=== PATIENT | male | born 1965 | race Caucasian/White ===

== ENCOUNTER 2023-04-13 00:27 | Day surgery (SDC) | payer OTHER, SELFPAY ==
[2023-04-12 10:37] VITALS: BMI 28.5
--- NOTE | 2023-04-12 10:44 | PC.NURSE ---
Report to the Outpatient Waiting Room, entrance under the green pavilion located off [facility], at time 1000 on date 04/13/23. Planned Procedure Time: 1200. Time changes happen often and if your time is changed the preop area will call you the afternoon before. - You and your visitor will be asked to self-screen and do not enter if you have any COVID symptoms. - A mask is optional within the hospital at this time. Patients may have clear liquids (water, carbonated beverages, clear teas, apple juice) until 3 hours prior to surgery with a maximum of 20 ounces. - No food from midnight until time of surgery Take the following medications with a SIP of water the morning of surgery: NONE DO NOT STOP ANY OF YOUR OTHER PRESCRIPTION MEDICATIONS PRIOR TO SURGERY ?EXCEPT THE FOLLOWING Medications to discontinue per physician: VITAMIN Date to take last dose: NO MORE UNTIL AFTER SURGERY Please no make-up, nail mexican, hairspray, perfume, deodorant, or body powder the day of surgery. No jewelry (including any body piercings) or valuables the day of surgery, leave them at home. Please take a shower or bath the night before, or the morning of, surgery with an antibacterial soap. Wear comfortable, loose fitting clothing. - Jewelry must be removed prior to entering the operating room. Rings and piercings that are not removed may be cut off. - The hospital will not accept responsibility for valuables. - Please leave all valuables, including medications, at home the day of surgery. If you are going home after surgery, a licensed driver's license examiner must drive you home. - NO public transportation without another adult if you receive anesthesia. - We recommend that an adult stay with you for 24 hours following discharge. - We also recommend that you do not drive, make important decision, drink alcoholic beverages, or take any drugs that were not prescribed by your health care provider for at least 24 hours after your discharge time. Follow any additional instructions given to you from your surgeon. If you or anyone in your household have experienced Covid symptoms in the past week, please notify your surgeon or the nurse liaison at the phone number below for possible testing. Telephone instructions given to PT - TOY HOPKINS and asked if any additional questions and then verbalized understanding. Patient advised to call surgeon office or pre surgery nurse liaison [phone] if any additional questions.
[2023-04-13] VITALS (11 sets, daily range): BP systolic 125–141; BP diastolic 64–88; PULSE 58–87; RESP 12–18; TEMP 36.2–36.4; O2SAT 97–100
--- NOTE | 2023-04-13 08:42 | ECG_ITS ---
Measurements Intervals [place] Rate: 55 P: 60 AR: 154 QRS: 75 QRSD: 106 T: 55 QT: 435 QTc: 418 Interpretive Statements SINUS BRADYCARDIA POSSIBLE LEFT ATRIAL ENLARGEMENT BASELINE WANDER- I, II, AVR, AVL, AVF BORDERLINE ECG NO PREVIOUS ECG AVAILABLE FOR COMPARISON Electronically Signed On 04-13-2023 11:51:36 ALUMINUM HYDROXIDE PROCESS OPERATOR by Christoph Holman D.O.
[2023-04-13] MEDS: ACETAMINOPHEN 500 MG TABLET 1000 MG PO (11:30)
[2023-04-13] MEDS: KETOROLAC 15 MG/ML VIAL (*BKC) IV PUSH ×2 (11:30→15:17)
--- NOTE | 2023-04-13 11:38 | WPDANESEPPF ---
Anes - Initial Pre Proc Eval Procedure: Operation Date: 04/13/23 12:00 Proposed Procedures p Robotic Assisted Laparoscopic Bilateral Inguinal Hernia Repair with Mesh, Possible Open - Cristobal Madera MD Date/Time: 04/13/23 11:38 Surgeon: Cristobal Madera MD Pre Op Diagnosis: Bilateral Reducible Ing Hernia Patient Data Age: 57 Gender: M Height: 1.8 m Weight: 93 kg Allergies Allergy/AdvReac Type Severity Reaction Status Date / Time No Known Allergies Allergy Mild Verified 04/12/23 10:36 Home Medications Medication Instructions Recorded Confirmed Type atorvastatin 20 mg tablet See Rx Instructions .Route 09/28/21 04/12/23 Rx .COMPLEX #30 tabs sildenafil 100 mg tablet (Viagra) 100 mg PO DAILY PRN sexual 02/21/23 04/12/23 Rx activity #20 tabs multivitamin 1 tablet PO DAILY 02/23/23 04/12/23 History Patient hx anesthesia problems: none Family hx anesthesia problems: none Results Review: All pre-operative results and documents have been reviewed as part of the pre-operative evaluation. [facility] Past Medical History Medical History Hyperlipidemia Kidney stones Surgical History Surgical History History of carpal tunnel surgery L hand in 2004 History of foot surgery L foot in 2008 History of hand surgery L hand in 2015 Hx of heart artery stent Hx of right knee surgery 1985 Family History Family History Mother Family history of malignant neoplasm of breast in first degree relative Father Malignant neoplasm of prostate Patient's father is Social History Social History Smoking packs per day: 1 Smoking cigarettes per day: 20.0 Years smoked: 20 Smoking pack-years: 20.00 Smoking status: Former smoker Tobacco type: cigarettes Second hand tobacco smoke exposure: Yes Smoking end date: 05/31/07 Alcohol intake: current Alcohol use details: once a month Substance use: current Substance use type: marijuana Lack of Transportation: No Lack of Food: Never True Current Housing: I Have Housing Concerned About Future Housing: No Difficulty Paying Gas/Electric Bills: YES Difficulty Paying for Meds: No Currently Unemployed: No Education: High School Diploma/GED Difficulty w/ Childcare or Family Care: No Living arrangements: alone Spiritual care concerns: No Anes - Eval Final PreProcedure Day of Procedure 04/13/23 11:38 Patient weight: normal Heart: regular rate and rhythm Lungs: clear to auscultation Airway: Mallampati scale class II Neurological: alert and oriented Last oral intake: >/= 8 hours ASA classification: III Emergent: no Anesthetic plan: proceed Anesthesia type and monitoring: general ETT and standard monitoring Results Review: All pre-operative results and documents have been reviewed as part of the pre-operative evaluation. Informed Consent: The patient's anesthetic plan and its attendant risks and benefits were discussed with the patient/family/POA. Questions were solicited and answers provided to the satisfaction of the patient/family/POA.
--- NOTE | 2023-04-13 11:55 | PM.IMHP ---
H&P: HPI History of Present Illness Date/Time: 04/13/23 11:55 Chief Complaint: Bilateral inguinal hernias Narrative: Sunny is a 57 y/o male who presents with a right groin bulge at the request of Tj Butler PA-C. Patient first noticed the bulge about 9 months ago. He is able to push the bulge back in when he lays down. He denies pain and troubles with urination. He wears a hernia belt daily. He denies surgery on his abdomen. He has a history of cardiac stent placement in 2009. He saw Dr. Holman yesterday for routine cardiac follow-up with no concerns. Review of Systems Review of Systems: The remainder of the review of systems to include constitutional, HEENT, cardiovascular, respiratory, GI, , integumentary, musculoskeletal, endocrine, immunologic, hematologic, psychiatric, and neurologic are all negative except for which is mentioned above in the HPI. PMFSH Past Medical History Medical History Hyperlipidemia Kidney stones Surgical History Surgical History History of carpal tunnel surgery L hand in 2004 History of foot surgery L foot in 2008 History of hand surgery L hand in 2016 Hx of heart artery stent Hx of right knee surgery 1985 Family History Family History Mother Family history of malignant neoplasm of breast in first degree relative Father Malignant neoplasm of prostate Patient's father is Social History Social History Smoking packs per day: 1 Smoking cigarettes per day: 20.0 Years smoked: 20 Smoking pack-years: 20.00 Smoking status: Former smoker Tobacco type: cigarettes Second hand tobacco smoke exposure: Yes Smoking end date: 05/31/07 Alcohol intake: current Alcohol use details: once a month Substance use: current Substance use type: marijuana Lack of Transportation: No Lack of Food: Never True Current Housing: I Have Housing Concerned About Future Housing: No Difficulty Paying Gas/Electric Bills: YES Difficulty Paying for Meds: No Currently Unemployed: No Education: High School Diploma/GED Difficulty w/ Childcare or Family Care: No Living arrangements: alone Spiritual care concerns: No Meds Home Medications and Allergies Home Medications Medication Instructions Recorded Confirmed Type atorvastatin 20 mg tablet See Rx Instructions .Route 09/28/21 04/12/23 Rx .COMPLEX #30 tabs sildenafil 100 mg tablet (Viagra) 100 mg PO DAILY PRN sexual 02/21/23 04/12/23 Rx activity #20 tabs multivitamin 1 tablet PO DAILY 02/23/23 04/12/23 History Allergies Allergy/AdvReac Type Severity Reaction Status Date / Time No Known Allergies Allergy Mild Verified 04/12/23 10:36 Exam Const: General: comfortable and no acute distress Eyes: General: appearance normal, both eyes and all related structures Sclera: sclerae normal Pupils: Equal, round and reactive pupils present EOM: EOMs intact bilaterally Neck: Neck: supple and no JVD Resp: Effort & Inspection: normal respiratory effort Auscultation: clear to auscultation bilaterally Cardio: Rate: regular rate Rhythm: regular rhythm GI: GI Palp: Yes Soft to palpation, No Firmness to palpation present (GI), No Tenderness to palpation present (GI), No Guarding due to palpation present (GI) and No Hernia present : Other: Penis: normal penis Scrotum: scrotum normal and inguinal hernia bilateral Testes: Testes normal Other: No umbilical or ventral hernias. He has a right inguinal scrotal hernia. Manually reducible. Left inguinal hernia. Moderate sized. Easily reducible without scrotal extension. Skin: General skin exam: normal color and no rashes or lesions noted Neuro: General: gait normal Speech: normal speech Motor exam (neuro): 5/5 motor stren
--- NOTE | 2023-04-13 11:59 | WPDHPUPDATE1 ---
History and Physical Update Update Date/Time: 04/13/23 11:59 History and Physical has been reviewed, including an updated exam of the patient. There are NO changes in the patient's condition. Risks, benefits, and alternatives have been discussed and questions answered. Patient agrees to proceed with procedure.
[2023-04-13] MEDS: LACTATED RINGERS 1,000 ML 30 ML IV CONT ×2 (12:00→15:30)
[2023-04-13] MEDS: ceFAZolin 2 GM/D5W 50 ML 2 GM/50 ML BAG IVPB (12:15)
[2023-04-13] MEDS: BUPivacaine HCL 0.5% PF 30 ML VIAL INFILTRATE (12:59)
[2023-04-13] MEDS: LIDO 1%/EPINEPHRINE 1:100,000 20 ML VIAL 30 ML INFILTRATE (13:00)
--- NOTE | 2023-04-13 15:50 | W.PM.PROC2 ---
Procedure Note - Detailed Date of Procedure 04/13/23 Pre-op Diagnosis Bilateral Reducible Ing Hernia Post-op Diagnosis Same (Left direct inguinal hernia, right indirect inguinal hernia.) Procedure Performed Robotic assisted laparoscopic bilateral inguinal hernia repair with Bard 3D mid weight mesh. Surgeon Cristobal Madera MD Management Engineer Tena DAWSON Anesthesia General Indications Patient is a 57-year-old gentleman who presented with a large bulge in the right groin region which extends all the way down into his scrotum. He also has a bulge in the left groin region which does not extend into the scrotum. On examination of the right side he has a manually reducible right inguinal scrotal hernia. On the left side he has a reducible large left inguinal hernia which is not extend into the scrotum. He presents now for robotic assisted laparoscopic bilateral inguinal hernia repair with mesh. Findings Patient had a large right indirect inguinal hernia. Within the hernia sac which was able to be reduced laparoscopically was cecum as well as the appendix and a portion of the terminal ileum. There is no evidence of ischemia to the bowel. On the left side was a large direct inguinal hernia without any bowel involvement. Description of Procedure After informed consent was obtained patient brought to the operating room was placed supine position and general endotracheal anesthesia was administered. The abdomen was then prepped and draped usual sterile fashion as well as the bilateral groin regions. A time-out was then performed correctly identifying the patient as well as the procedure to be performed. There is no need to identify site marking this was a bilateral inguinal hernia repair. He was given perioperative IV antibiotics. I started by gaining entrance into the abdomen by utilizing a 10mm Optiview port in the left upper quadrant. Once inside the abdomen insufflated to adequate pneumoperitoneum of 15mmHg of CO2. Then with the patient in the head-down Trendelenburg position the bowel was allowed to fall out of the pelvis. I could see that the patient had a indirect right inguinal hernia which was large and within the hernia sac was the cecum and appendix and a portion of the terminal ileum. On the left side there was a direct inguinal hernia defect without any bowel within the defect. I then placed additional robotic trocar ports across the mid abdomen. This and all done under direct visualization. I then had the [employer] robot brought to the patient's bedside and docked to the right side of the bed in the robotic arms were attached the robotic ports. I then scrubbed out the procedure and the bedside delivery driver assistant advanced robotic instruments into the abdomen under direct visualization. I sat down at the robotic console to perform the dissection robotically. I then proceeded to make a preperitoneal flap cross the lower abdominal wall starting from anterior medial to the right anterior superior iliac spine extending across the lower abdomen to the left anterior superior iliac spine. Dissection was 1st carried down the left side and dissected to the pubic tubercle on the left side. Identified a small cord lipoma within left will canal and reduced this and resected it. I then reduced the direct hernia component and continue my dissection down to the pubic tubercle across the midline and the space of Retzius at the pubic symphysis. The bladder was taken down with division of the median umbilical ligament and preserved without injury. As I continued my dissection onto the right side identify the right pubic tubercle and proceeded to dissect out the large indirect inguinal hernia sac. I very carefully dissected the hernia sac out of the inguinal canal reducing the cecum, appendix, and a small portion of terminal ileum without any difficulty. All this bowel was viable without any issues. I then very carefully dissected the right indirect inguinal hernia sac away fro
[2023-04-13] MEDS: oxyCODONE HCL (*CRX) 5 MG TAB IR PO (17:33)
== END 2023-04-13 18:00 | disposition home or self-care (01) ==
PROVIDERS: PCP Internal Medicine; Visit Provider Surgery
PROC: 8E0Y4CZ Robotic Assisted Procedure of Lower Extremity, Percutaneous Endoscopic Approach (ICD-10-PCS; CPT 49650; principal; 2023-04-13 12:00)
DX: K40.20 Bilateral inguinal hernia, without obstruction or gangrene, not specified as recurrent (principal); D17.6 Benign lipomatous neoplasm of spermatic cord; R00.1 Bradycardia, unspecified; E78.5 Hyperlipidemia, unspecified; Z87.891 Personal history of nicotine dependence; Z79.899 Other long term (current) drug therapy; F10.90 Alcohol use, unspecified, uncomplicated; F12.90 Cannabis use, unspecified, uncomplicated
CPT/HCPCS: 49650; 36415; 86850; 86900; 86901; 93005; A9270; C1781; J0690; J1100; J1170; J1885; J2250; J2405; J2704; J2710; J3010; J7030; J7120